=== PATIENT | female | born 1990 | race African-American/Black ===

== ENCOUNTER 2016-09-11 19:53 | Emergency (ER) | payer SELFPAY ==
--- NOTE | 2016-09-11 21:41 | ER Document Report ---
ED General - General Chief Complaint: Breathing Difficulty Stated Complaint: SHORTNESS OF BREATH Time Seen by Provider: 09/11/16 21:26 Mode of Arrival: Ambulatory Information source: Patient Notes: This is a 25-year-old female with no prior medical history presents to the emergency room with shortness of breath, dizziness and palpitations. Patient states she frequently gets swollen feet when she walks around. Patient denies any chest pain. She denies any abdominal pain. Patient denies any nausea, vomiting or diarrhea. Surgical history: Bilateral tubal ligation, 3, tonsils/adenoids Medications: None Drug allergies: none TRAVEL OUTSIDE OF THE [place] IN LAST 30 DAYS: No - HPI Onset: Just prior to arrival Onset/Duration: Gradual Quality of pain: No pain Severity: None Pain Level: Denies Associated symptoms: Shortness of breath, Other - palpitations Exacerbated by: Denies Relieved by: Denies Similar symptoms previously: No Recently seen / treated by doctor: No Past Medical History - General Information source: Patient - Social History Smoking Status: Never Smoker Cigarette use (# per day): No Chew tobacco use (# tins/day): No Frequency of alcohol use: None Drug Abuse: None Lives with: Family Family History: Reviewed & Not Pertinent Patient has suicidal ideation: No Patient has homicidal ideation: No - Past Medical History Cardiac Medical History: Reports: Hx Heart Murmur Pulmonary Medical History: Reports: None EENT Medical History: Reports: None Neurological Medical History: Reports: None Endocrine Medical History: Reports: None Renal/ Medical History: Reports: None. Denies: Hx Peritoneal Dialysis Malignancy Medical History: Reports: None GI Medical History: Reports: None Musculoskeltal Medical History: Reports None Skin Medical History: Reports None Psychiatric Medical History: Reports: None Traumatic Medical History: Reports: None Infectious Medical History: Reports: None Past Surgical History: Reports: Hx Section, Hx Tonsillectomy, Hx Tubal Ligation Review of Systems - Review of Systems Constitutional: No symptoms reported EENT: No symptoms reported Cardiovascular: See HPI, Palpitations Respiratory: No symptoms reported Gastrointestinal: No symptoms reported Genitourinary: No symptoms reported Musculoskeletal: No symptoms reported Skin: No symptoms reported Hematologic/Lymphatic: No symptoms reported Neurological/Psychological: No symptoms reported Physical Exam - Vital signs Notes: Physical exam: GENERAL: 25-year-old female, alert and oriented 3, no acute distress HEAD: Atraumatic, normocephalic. EYES: Pupils equal round and reactive to light, extraocular movements intact, sclera anicteric, conjunctiva are normal. ENT: TMs normal, nares patent, oropharynx clear without exudates. Moist mucous membranes. NECK: Normal range of motion, supple without lymphadenopathy or JVD. LUNGS: Breath sounds clear to auscultation bilaterally and equal. No wheezes rales or rhonchi. HEART: Regular rate and rhythm without murmurs, rubs or gallops. ABDOMEN: Soft, normoactive bowel sounds. No tenderness to palpation. No guarding, no rebound. No masses appreciated. EXTREMITIES: Normal range of motion, no pitting or edema. No clubbing or cyanosis. NEUROLOGICAL: Cranial nerves II through XII grossly intact. Normal speech, normal gait. PSYCH: Normal mood, normal affect. SKIN: Warm, Dry, normal turgor, no rashes or lesions noted. Course - Laboratory Result Diagrams: 09/11/16 22:30 09/11/16 22:30 Laboratory results interpreted by me: 09/11/16 09/11/16 22:30 22:30 WBC 12.3 H Hgb 8.2 L Hct 28.5 L MCV 60 L MCH 17.3 L MCHC 28.7 L RDW 19.3 H Plt Count 471 H Glucose 150 H Total Protein 8.4 H - Diagnostic Test Radiology reviewed: Image reviewed, Reports reviewed - EKG Interpretation by Me Rate: Normal - Chest x-ray shows no infiltrates Rhythm: NSR - EKG shows normal sinus rhythm with a ventricular rate of 89, no acute ST-T wave changes Discharge - Discharge Clinical Impression: Palpitations, anemia Condition: Stable Disposition: HOME, SELF-CARE Instructions: Palpitations (Irregular or Rapid Heartrate) ([facility]), Anemia ([facility]) Additional Instructions: Recommendations: avoid Caffeine products (coffee, soda). Follow up with her primary care doctor (I left the number for 1 on the chart). See the instruction sheet on palpitations. Follow-up with the [facility] peeler (I left the #1 on the chart) Forms: Return to Work Referrals: BEREKET GONZALES MD [ACTIVE STAFF] - Follow up as needed (this is a primary care doctor.) LACEY,ERICKSON, MD [ACTIVE STAFF] - Follow up as needed (this is the [facility] pe[facility])
--- NOTE | 2016-09-11 22:24 | RADIOLOGY REPORT (SQ) ---
EXAM DESCRIPTION: CHEST PA/LAT COMPLETED DATE/TIME: 09/11/2016 10:08 pm REASON FOR STUDY: sob COMPARISON: None. EXAM PARAMETERS: NUMBER OF VIEWS: two views TECHNIQUE: Digital Frontal and Lateral radiographic views of the chest acquired. RADIATION DOSE: NA LIMITATIONS: none FINDINGS: LUNGS AND PLEURA: No opacities, masses or pneumothorax. No pleural effusion. MEDIASTINUM AND HILAR STRUCTURES: No masses or contour abnormalities. HEART AND VASCULAR STRUCTURES: Heart normal size. No evidence for failure. BONES: No acute findings. HARDWARE: None in the chest. OTHER: No other significant finding. IMPRESSION: NO SIGNIFICANT RADIOGRAPHIC FINDING IN THE CHEST. TECHNICAL DOCUMENTATION: JOB ID: [id number] [employer]- All Rights Reserved
[2016-09-11 23:02] LABS: ABSOLUTE BASOPHILS # (AUTO) 0.1 10^3/uL (0.0-0.2); ABSOLUTE EOSINOPHILS # (AUTO) 0.2 10^3/uL (0.0-0.6); ABSOLUTE LYMPHOCYTES (AUTO) 3.7 10^3/uL (0.5-4.7); ABSOLUTE MONOCYTES (AUTO) 1.1 10^3/uL (0.1-1.4); ABSOLUTE NEUT (AUTO) 7.2 10^3/uL (1.7-8.2); BASOPHILS % (AUTO) 0.7 % (0-2); EOSINOPHILS % (AUTO) 1.9 % (0-6); HEMATOCRIT 28.5 % (36.0-47.0); HEMOGLOBIN 8.2 g/dL (12.0-15.5); HGB HCT DIFFERENCE -3.9; LYMPHOCYTES % (AUTO) 29.7 % (13-45); MEAN CORPUSCULAR HEMOGLOBIN 17.3 pg (27.0-33.4); MEAN CORPUSCULAR HGB CONC 28.7 g/dL (32.0-36.0); MONOCYTES % (AUTO) 9.1 % (3-13); RED BLOOD COUNT 4.72 10^6/uL (3.72-5.28); RED CELL DISTRIBUTION WIDTH 19.3 % (11.5-14.0); SEGMENTED NEUTROPHILS % (AUTO) 58.6 % (42-78); WHITE BLOOD COUNT 12.3 10^3/uL (4.0-10.5)
[2016-09-11 23:10] LABS: ALANINE AMINOTRANSFERASE 28 U/L (9-52); ALBUMIN 4.2 g/dL (3.5-5.0); ALKALINE PHOSPHATASE 80 U/L (38-126); ANION GAP 13 (5-19); ASPARTATE AMINO TRANSFERASE 19 U/L (14-36); BILIRUBIN,DIRECT 0.3 mg/dL (0.0-0.4); BILIRUBIN,TOTAL 0.3 mg/dL (0.2-1.3); BLOOD UREA NITROGEN 9 mg/dL (7-20); CALCIUM 9.3 mg/dL (8.4-10.2); CARBON DIOXIDE 26 mmol/L (22-30); CHLORIDE 102 mmol/L (98-107); CREATININE RESULT 0.75 mg/dL (0.52-1.25); GLUCOSE 150 mg/dL (75-110); POTASSIUM 3.9 mmol/L (3.6-5.0); SODIUM 140.8 mmol/L (137-145); TOTAL PROTEIN 8.4 g/dL (6.3-8.2)
[2016-09-11 23:19] LABS: MEAN CORPUSCULAR VOLUME 60 fl (80-97)
[2016-09-11 23:20] LABS: HYPOCHROMASIA 2+; MICROCYTOSIS 3+; OVALOCYTES 1+; POIKILOCYTOSIS 1+; POLYCHROMASIA SLIGHT; TARGET CELLS SLIGHT; TEAR DROP CELLS SLIGHT
[2016-09-11 23:21] LABS: PLATELET CLUMPS PRESENT
[2016-09-11 23:40] LABS: THYROID STIMULATING HORMONE 2.4 uIU/mL (0.47-4.68)
[2016-09-12 00:42] VITALS: BP 119/70
[2016-09-12 16:06] LABS: PATH REVIEW PATHOLOGIST REVIEWED
--- NOTE | 2016-09-12 17:56 | EKG REPORT ---
SEVERITY:- NORMAL ECG - SINUS RHYTHM : Confirmed by: Ailin Adamson 12-Sep-2016 17:56:14
== END 2016-09-12 00:30 | disposition home or self-care (01) ==
LOC: ER 19:53
DX: R00.2 Palpitations (principal); D64.9 Anemia, unspecified; R06.02 Shortness of breath; R42 Dizziness and giddiness
CPT/HCPCS: 36415; 71020; 80053; 84439; 84443; 85025; 93005; 93010; 99285

== ENCOUNTER 2017-01-26 09:52 | Emergency (ER) | payer SELFPAY ==
--- NOTE | 2017-01-26 10:29 | ER Document Report ---
ED GI/ - General Chief Complaint: Abdominal Pain Stated Complaint: STOMACH PAIN Time Seen by Provider: 01/26/17 10:29 Mode of Arrival: Ambulatory Information source: Patient Notes: 26 yo female 8 days late for menses which is usually like clockwork, c/o riight upper abdominal pain since 0500. Sleepy lately. Some nausea and heartburn past 3 nights No vaginal bleeding, discharge or odor. No dysuria. No v/d. No fever. PMH/Surgies: BTL, 3 c sections, anemia, tonsillectomy. TRAVEL OUTSIDE OF THE [place] IN LAST 30 DAYS: No - Related Data Allergies/Adverse Reactions: promethazine [From Phenergan] Adverse Reaction (Verified 01/26/17 09:59) Past Medical History - General Information source: Patient - Social History Smoking Status: Never Smoker Frequency of alcohol use: None Drug Abuse: None Lives with: Spouse/Significant other Family History: Reviewed & Not Pertinent Patient has suicidal ideation: No Patient has homicidal ideation: No - Past Medical History Cardiac Medical History: Reports: Hx Heart Murmur Renal/ Medical History: Denies: Hx Peritoneal Dialysis Past Surgical History: Reports: Hx Section, Hx Tonsillectomy, Hx Tubal Ligation - Immunizations Hx Diphtheria, Pertussis, Tetanus Vaccination: Yes Review of Systems - Review of Systems Constitutional: No symptoms reported EENT: No symptoms reported Cardiovascular: No symptoms reported Respiratory: No symptoms reported Gastrointestinal: See HPI Genitourinary: No symptoms reported Female Genitourinary: See HPI Musculoskeletal: No symptoms reported Skin: No symptoms reported Hematologic/Lymphatic: No symptoms reported Neurological/Psychological: No symptoms reported Physical Exam - Vital signs Vitals: Temp Pulse Resp BP Pulse Ox 98.8 F 102 H 18 132/80 H 100 01/26/17 09:58 01/26/17 09:58 01/26/17 09:58 01/26/17 09:58 01/26/17 09:58 Interpretation: Normal - General General appearance: Appears well, Alert - HEENT Head: Normocephalic, Atraumatic Eyes: Normal Pupils: PERRL Neck: Supple. No: Lymphadenopathy - Respiratory Respiratory status: No respiratory distress Chest status: Nontender Breath sounds: Normal Chest palpation: Normal - Cardiovascular Rhythm: Regular Heart sounds: Normal auscultation Murmur: No - Abdominal Inspection: Normal Distension: No distension Bowel sounds: Normal Tenderness: Tender - mild RUQ Organomegaly: No organomegaly. No: Hepatomegaly, Splenomegaly - Back Back: Normal, Nontender. No: CVA tenderness - Extremities General upper extremity: Normal inspection, Nontender, Normal color, Normal ROM , Normal temperature General lower extremity: Normal inspection, Nontender, Normal color, Normal ROM , Normal temperature, Normal weight bearing. No: Liliana's sign - Neurological Neuro grossly intact: Yes Cognition: Normal Orientation: AAOx4 [place] Coma Scale Eye Opening: Spontaneous Curly Coma Scale Verbal: Oriented [place] Coma Scale Motor: Obeys Commands [place] Coma Scale Total: 15 Speech: Normal Motor strength normal: LUE, RUE, LLE, RLE Sensory: Normal - Psychological Associated symptoms: Normal affect, Normal mood - Skin Skin Temperature: Warm Skin Moisture: Dry Skin Color: Normal Course - Re-evaluation Re-evalutation: 01/26/17 12:39 Hemoglobin is 8.7 which the patient states is higher than it was before so she will continue take the iron. Urinalysis and test are negative. Chemistry is negative. She wants to do the gallbladder ultrasound as an outpatient which I agreed to and will give her the form for the outpatient limited abdominal ultrasound - Vital Signs Vital signs: Temp Pulse Resp BP Pulse Ox 98.7 F 89 17 128/85 H 99 01/26/17 13:02 01/26/17 13:02 01/26/17 13:02 01/26/17 13:02 01/26/17 13:02 - Laboratory Result Diagrams: 01/26/17 10:45 01/26/17 10:45 Laboratory results interpreted by me: 01/26/17 01/26/17 10:45 10:45 Hgb 8.7 L Hct 28.7 L MCV 61 L MCH 18.3 L MCHC 30.2 L RDW 19.5 H Plt Count 529 H Glucose 199 H Discharge - Discharge Clinical Impression: Right upper quadrant abdominal pain, Chronic anemia Condition: Good Disposition: HOME, SELF-CARE Instructions: Abdominal Pain ([facility]), Acetaminophen, Anemia, Iron Deficiency ([facility] ) Additional Instructions: get the limited abominal ultrasound as outpatient to see if this pain is due to gallbladder disease. Return to the emergency room if he get worse Continue taking your iron Please complete the patient satisfaction survey if you get one, and return it.. If you do not receive a survey, then you can go to the [facility] website, [email or web address] and place your comments about your very good care. Thank you very much. It was a pleasure being your medical provider today. Forms: Follow-Up Radiology Testing, Return to Work
[2017-01-26 11:01] LABS: ABSOLUTE BASOPHILS # (AUTO) 0.1 10^3/uL (0.0-0.2); ABSOLUTE EOSINOPHILS # (AUTO) 0.2 10^3/uL (0.0-0.6); ABSOLUTE MONOCYTES (AUTO) 0.5 10^3/uL (0.1-1.4); ABSOLUTE NEUT (AUTO) 5.9 10^3/uL (1.7-8.2); BASOPHILS % (AUTO) 1.2 % (0-2); EOSINOPHILS % (AUTO) 2.1 % (0-6); HEMATOCRIT 28.7 % (36.0-47.0); HEMOGLOBIN 8.7 g/dL (12.0-15.5); HGB HCT DIFFERENCE -2.6; LYMPHOCYTES % (AUTO) 23.3 % (13-45); MEAN CORPUSCULAR HEMOGLOBIN 18.3 pg (27.0-33.4); MEAN CORPUSCULAR HGB CONC 30.2 g/dL (32.0-36.0); MONOCYTES % (AUTO) 5.6 % (3-13); RED BLOOD COUNT 4.75 10^6/uL (3.72-5.28); RED CELL DISTRIBUTION WIDTH 19.5 % (11.5-14.0); SEGMENTED NEUTROPHILS % (AUTO) 67.8 % (42-78); WHITE BLOOD COUNT 8.7 10^3/uL (4.0-10.5)
[2017-01-26 11:10] LABS: APPEARANCE,URINE CLEAR; BILIRUBIN,URINE NEGATIVE (NEGATIVE); GLUCOSE, URINE NEGATIVE (NEGATIVE); KETONES,URINE NEGATIVE (NEGATIVE); LEUKOCYTE ESTERASE,URINE NEGATIVE (NEGATIVE); NITRITE,URINE NEGATIVE (NEGATIVE); PROTEIN,URINE NEGATIVE (NEGATIVE); URINE SPECIFIC GRAVITY 1.016; UROBILINOGEN,URINE NEGATIVE mg/dL (<2.0)
[2017-01-26 11:17] LABS: ALANINE AMINOTRANSFERASE 25 U/L (9-52); ALKALINE PHOSPHATASE 82 U/L (38-126); ANION GAP 15 (5-19); ASPARTATE AMINO TRANSFERASE 16 U/L (14-36); BILIRUBIN,DIRECT 0.2 mg/dL (0.0-0.4); BILIRUBIN,TOTAL 0.5 mg/dL (0.2-1.3); BLOOD UREA NITROGEN 8 mg/dL (7-20); CARBON DIOXIDE 24 mmol/L (22-30); CHLORIDE 102 mmol/L (98-107); CREATININE RESULT 0.75 mg/dL (0.52-1.25); GLUCOSE 199 mg/dL (75-110); LIPASE 118.9 U/L (23-300); POTASSIUM 3.9 mmol/L (3.6-5.0); TOTAL PROTEIN 7.5 g/dL (6.3-8.2)
[2017-01-26 11:25] LABS: MEAN CORPUSCULAR VOLUME 61 fl (80-97)
[2017-01-26 11:31] LABS: ANISOCYTOSIS 2+; MICROCYTOSIS 4+; PLATELET CLUMPS PRESENT
[2017-01-26 11:32] LABS: HYPOCHROMASIA 1+; OVALOCYTES 1+; POIKILOCYTOSIS 1+; POLYCHROMASIA SLIGHT; ROULEAUX SLIGHT
[2017-01-26 13:11] VITALS: BP 128/85
== END 2017-01-26 13:11 | disposition home or self-care (01) ==
LOC: ER 09:52
DX: D64.89 Other specified anemias (principal); R10.11 Right upper quadrant pain; R11.0 Nausea; Z98.51 Tubal ligation status
CPT/HCPCS: 36415; 80053; 81001; 83690; 84702; 85025; 87086; 87088; 87186; 99284

== ENCOUNTER 2019-05-05 09:35 | Emergency (ER) | payer SELFPAY ==
--- NOTE | 2019-05-05 10:19 | ER Document Report ---
ED Medical Screen (RME) - General Chief Complaint: Abnormal Lab Results Stated Complaint: ABNORMAL LABS Time Seen by Provider: 05/05/19 10:16 Notes: HPI: 28-year-old female sent over for blood transfusion by PCP. Patient has history of heavy menstrual cycles, had a very heavy menstrual cycle that lasted 12 days at the end of February beginning of March. Does report some dyspnea with exertional activities. Occasional pelvic pain. I have greeted and performed a rapid initial assessment of this patient. A comprehensive ED assessment and evaluation of the patient, analysis of test results and completion of the medical decision making process will be conducted by additional ED providers PHYSICAL EXAMINATION: GENERAL: Well-appearing, well-nourished and in mild acute distress. HEAD: Atraumatic, normocephalic. EYES: sclera anicteric, conjunctiva pale. ENT: Moist mucous membranes. NECK: Normal range of motion LUNGS: Normal work of breathing, clear to auscultation HEART: 2+ radial pulses bilaterally, regular rate and rhythm ABD: limited by positioning for exam in triage. No tenderness on exam EXTREMITIES: no pitting or edema. No cyanosis. NEUROLOGICAL: No focal neurological deficits. Moves all extremities spontaneously and on command. PSYCH: Normal mood, normal affect. SKIN: Warm, Dry, normal turgor, no rashes or lesions noted. Pale TRAVEL OUTSIDE OF THE [place] IN LAST 30 DAYS: No - Related Data Allergies/Adverse Reactions: promethazine [From Phenergan] Adverse Reaction (Verified 05/05/19 10:12) Home Medications: control. metformin. iron Past Medical History - Social History Chew tobacco use (# tins/day): No Frequency of alcohol use: None Drug Abuse: None - Past Medical History Cardiac Medical History: Reports: Hx Heart Murmur Renal/ Medical History: Denies: Hx Peritoneal Dialysis Past Surgical History: Reports: Hx Section, Hx Tonsillectomy, Hx Tubal Ligation - Immunizations Hx Diphtheria, Pertussis, Tetanus Vaccination: Yes Physical Exam - Vital signs Vitals: Temp Pulse Resp BP Pulse Ox 98.4 F 94 18 146/80 H 100 05/05/19 09:39 05/05/19 09:39 05/05/19 09:39 05/05/19 09:39 05/05/19 09:39 Course - Vital Signs Vital signs: Temp Pulse Resp BP Pulse Ox 98.4 F 94 18 146/80 H 100 05/05/19 09:39 05/05/19 09:39 05/05/19 09:39 05/05/19 09:39 05/05/19 09:39
[2019-05-05 10:56] LABS: ABSOLUTE BASOPHILS # (AUTO) 0.1 10^3/uL (0.0-0.2); ABSOLUTE EOSINOPHILS # (AUTO) 0.1 10^3/uL (0.0-0.6); ABSOLUTE LYMPHOCYTES (AUTO) 1.6 10^3/uL (0.5-4.7); ABSOLUTE MONOCYTES (AUTO) 0.4 10^3/uL (0.1-1.4); ABSOLUTE NEUT (AUTO) 3.4 10^3/uL (1.7-8.2); EOSINOPHILS % (AUTO) 1.1 % (0-6); HEMATOCRIT 20.4 % (36.0-47.0); LYMPHOCYTES % (AUTO) 28.9 % (13-45); MEAN CORPUSCULAR HEMOGLOBIN 17.6 pg (27.0-33.4); MEAN CORPUSCULAR HGB CONC 29.4 g/dL (32.0-36.0); MONOCYTES % (AUTO) 6.8 % (3-13); PLATELET COUNT 459 10^3/uL (150-450); RED BLOOD COUNT 3.41 10^6/uL (3.72-5.28); RED CELL DISTRIBUTION WIDTH 19.4 % (11.5-14.0); SEGMENTED NEUTROPHILS % (AUTO) 62.2 % (42-78); TOTAL CELLS COUNTED % (AUTO) 100 %; WHITE BLOOD COUNT 5.5 10^3/uL (4.0-10.5)
[2019-05-05 11:05] LABS: ALBUMIN 3.9 g/dL (3.5-5.0); ALKALINE PHOSPHATASE 73 U/L (38-126); ANION GAP 14 (5-19); ASPARTATE AMINO TRANSFERASE 15 U/L (14-36); BILIRUBIN,DIRECT 0.2 mg/dL (0.0-0.4); BILIRUBIN,TOTAL 0.4 mg/dL (0.2-1.3); BLOOD UREA NITROGEN 7 mg/dL (7-20); CALCIUM 8.6 mg/dL (8.4-10.2); CARBON DIOXIDE 22 mmol/L (22-30); CHLORIDE 101 mmol/L (98-107); GLUCOSE 255 mg/dL (75-110); POTASSIUM 4.3 mmol/L (3.6-5.0); TOTAL PROTEIN 7.6 g/dL (6.3-8.2)
[2019-05-05 11:26] LABS: ANISOCYTOSIS 2+
[2019-05-05 11:27] LABS: HYPOCHROMASIA 1+; OVALOCYTES 1+; POIKILOCYTOSIS 1+; SCHISTOCYTES SLIGHT
[2019-05-05 11:28] LABS: PLATELET COMMENT INCREASED; TARGET CELLS SLIGHT; TEAR DROP CELLS SLIGHT
[2019-05-05 11:29] LABS: MEAN CORPUSCULAR VOLUME 60 fl (80-97)
[2019-05-05] MEDS ORDERED: IRON SUCROSE COMPLEX INJ/PF 100 MG/5 ML SDV IV ONE ×3 (12:10→12:30)
--- NOTE | 2019-05-05 12:11 | ER Document Report ---
ED General - General Chief Complaint: Abnormal Lab Results Stated Complaint: ABNORMAL LABS Time Seen by Provider: 05/05/19 10:16 [facility] - Follow up in 1 week Notes: This is a 28-year-old female with a history heavy vaginal bleeding previously on iron and a known history of anemia presenting after abnormal lab test as an outpatient. Hemoglobin 5.5. She says she slightly more fatigued than usual but is been fatigued for quite a while. She denies pallor although she appears pale. She been having metromenorrhagia for several months and used to see [facility] but no longer does. Her mother got hep C from a blood transfusion and she is adamantly against refusing them. TRAVEL OUTSIDE OF THE [place] IN LAST 30 DAYS: No - Related Data Allergies/Adverse Reactions: promethazine [From Phenergan] Adverse Reaction (Verified 05/05/19 10:12) Home Medications: control. metformin. iron Past Medical History - Social History Smoking Status: Unknown if Ever Smoked Chew tobacco use (# tins/day): No Frequency of alcohol use: None Drug Abuse: None Family History: Reviewed & Not Pertinent Patient has suicidal ideation: No Patient has homicidal ideation: No - Past Medical History Cardiac Medical History: Reports: Hx Heart Murmur Renal/ Medical History: Denies: Hx Peritoneal Dialysis Past Surgical History: Reports: Hx Section, Hx Tonsillectomy, Hx Tubal Ligation - Immunizations Hx Diphtheria, Pertussis, Tetanus Vaccination: Yes Review of Systems - Review of Systems Notes: REVIEW OF SYSTEMS GEN: Fatigue ENT: Denies sore throat, nasal discharge, ear pain EYES: Denies blurry vision, eye pain, discharge CV: Denies chest pain, palpitations, edema RESP: Denies cough, shortness of breath, wheezing GI: Denies abdominal pain, nausea, vomiting, diarrhea MSK: Denies joint pain/swelling, edema, SKIN: Denies rash, skin lesions LYMPH: Denies swollen glands/lymph nodes NEURO: Denies headache, focal weakness or numbness, dizziness PSYCH: Denies depression, suicidal or homicidal ideation PHYSICAL EXAMINATION General: No acute distress, well-nourished Head: Atraumatic, normocephalic ENT: Mouth normal, oropharynx moist, no exudates or tonsillar enlargement Eyes: Conjunctiva normal, pupils equal, lids normal Neck: No JVD, supple, no guarding CVS: Normal rate, regular rhythm, no murmurs Resp: No resp distress, equal and normal breath sounds bilaterally GI: Nondistended, soft, no tenderness to palpation, no rebound or guarding Ext: No deformities, no edema, normal range of motion in upper and lower ext Back: No CVA or midline TTP Skin: No rash, warm Lymphatic: No lymphadeopathy noted Neuro: Awake, alert. Face symmetric. GCS 15. Physical Exam - Vital signs Vitals: Temp Pulse Resp BP Pulse Ox 98.4 F 94 18 146/80 H 100 05/05/19 09:39 05/05/19 09:39 05/05/19 09:39 05/05/19 09:39 05/05/19 09:39 Course - Re-evaluation Re-evalutation: 05/05/19 15:15 Symptomatic anemia likely secondary to fibroid seen on ultrasound. Hemoglobin here is 6. Tachycardic to 102 initially blood pressure slightly low but improved with no interventions. She is not on a blood transfusion is not really 1 to be admitted. I discussed her case with SURVEY TECHNICIAN who agrees that we can give her a dose of Venofer here in the ED and she will be placed on Provera and iron and [facility]. After the Venofer she felt good her vitals were stable and she was discharged. I have discussed with the patient there likely diagnosis, aftercare plan, follow-up plans and my usual and customary return precautions. They verbalized understanding of this. - Vital Signs Vital signs: Temp Pulse Resp BP Pulse Ox 98.5 F 98 17 123/81 100 05/05/19 13:49 05/05/19 11:48 05/05/19 13:34 05/05/19 13:34 05/05/19 13:34 - Laboratory Result Diagrams: 05/05/19 10:30 05/05/19 10:30 Laboratory results interpreted by me: 05/05/19 05/05/19 10:30 10:30 RBC 3.41 L Hgb 6.0 L Hct 20.4 L MCV 60 L MCH 17.6 L MCHC 29.4 L RDW 19.4 H Plt Count 459 H Sodium 136.6 L Glucose 255 H Discharge - Discharge Clinical Impression: Symptomatic anemia Condition: Good Disposition: HOME, SELF-CARE Instructions: Anemia ([facility]) Prescriptions: Iron,Carb/Vit C/Vit B12/Folic [Fe C Plus Tablet] 1 each PO DAILY #30 tablet Medroxyprogesterone Acet [Provera 10 Mg Tablet] 10 mg PO DAILY #30 tablet Forms: Return to Work Referrals: [facility] [Provider Group] - Follow up in 1 week
--- NOTE | 2019-05-05 12:18 | RADIOLOGY REPORT (SQ) ---
EXAM DESCRIPTION: U/S NON OB PEL TV W/DOPPLER COMPLETED DATE/TIME: 05/05/2019 11:19 am REASON FOR STUDY: vag bleed COMPARISON: None. TECHNIQUE: Dynamic and static grayscale images acquired of the pelvis via transvaginal approach and recorded on PACS. Additional selected color Doppler and spectral images recorded. LIMITATIONS: None. FINDINGS: UTERUS: Likely fibroid 2.9 x 2 x 3 cm. ENDOMETRIAL STRIPE: No focal or generalized thickening. No masses. CERVIX: 2.6 cm. No nabothian cysts. RIGHT OVARY AND DOPPLER: Normal size. No worrisome masses. Normal arterial vascular flow without evid ence for torsion. LEFT OVARY AND DOPPLER: Ovary not seen. FREE FLUID: None noted. OTHER: No other significant finding. MEASUREMENTS: UTERUS: 7.5 x 5.6 x 6.6 cm. ENDOMETRIAL STRIPE: 7 mm. RIGHT OVARY: 2.5 x 2.5 x 1.9 cm. LEFT OVARY: Ovary not seen. IMPRESSION: There appears to be a 3 cm fibroid. No other significant finding. The left ovary was n ot seen. TECHNICAL DOCUMENTATION: JOB ID: [id number]- All Rights Reserved Rev-08/14 Reading location - IP/workstation name: [email or web address]
[2019-05-05] MEDS ORDERED: NORMAL SALINE 1000 ML 1,000 ML IV ONE (12:55)
[2019-05-05 13:39] VITALS: BP 123/81
[2019-05-06 11:23] LABS: PATH REVIEW PATHOLOGIST REVIEWED
== END 2019-05-05 14:01 | disposition home or self-care (01) ==
LOC: ER 09:35
DX: D64.89 Other specified anemias (principal); N93.8 Other specified abnormal uterine and vaginal bleeding; R00.0 Tachycardia, unspecified; R53.83 Other fatigue; Z98.51 Tubal ligation status
CPT/HCPCS: 86900; 86901; 36415; 86850; 84703; 85025; 80053; 76830; 93976; J1756; J7030